=== PATIENT | male | born 1950 | race Caucasian/White ===

== ENCOUNTER 2018-04-08 16:58 | Inpatient (IN) | payer MEDICAID ==
[~2018-04-08] VITALS: Ht 175.3 cm; Wt 62.1 kg
--- NOTE | 2018-04-08 17:14 | NUR ---
BIBRA 860 C/O LLQ ABDOMINAL PAIN SINCE LAST NIGHT. PAIN LEVEL 8/10, FEELS LIKE "SOMEONE IS PUNCHING ME". HAD THIS EXPERIENCE ONCE BEFORE. HAS NOT TAKEN ANYTHING FOR PAIN. PT IS AOX4, AMB, VSS, RR EVEN AND UNLABORED. SKIN INTACT. DENIES DIZZINESS, WEAKNESS, N/V. READY FOR EVAL.
--- NOTE | 2018-04-08 17:16 | NUR ---
DR WETZEL AT BEDSIDE
[2018-04-08] MEDS ORDERED: KETOROLAC TROMETHAMINE INJ 30 MG/ML VIAL IV ONE (17:30)
[2018-04-08] MEDS ORDERED: KETOROLAC TROMETHAMINE INJ 30 MG/ML VIAL ONE (17:33)
--- NOTE | 2018-04-08 18:28 | NUR ---
PHLEB AT BEDSIDE, BLOOD SENT TO LAB
[2018-04-08 18:38] LABS: BASOPHILS % (AUTO) 0.7 % (0.0-2.0); EOSINOPHILS % (AUTO) 1.3 % (0.0-6.0); HEMATOCRIT 35 % (39-51); HEMOGLOBIN 11.5 g/dL (13.5-17.5); LYMPHOCYTES % (AUTO) 19.3 % (20.0-44.0); MEAN CORPUSCULAR HGB CONC 33 g/dl (31.0-36.0); MEAN CORPUSCULAR VOLUME 95 fL (80-96); MONOCYTES # (AUTO) 0.6 /CMM (0.1-1.30); MONOCYTES % (AUTO) 11.1 % (2.0-12.0); NEUTROPHILS # (AUTO) 3.6 /CMM (1.8-8.9); NEUTROPHILS % (AUTO) 67.6 % (43.0-81.0); PLATELET COUNT (AUTO) 303 /CMM (150-450); RED BLOOD CELL COUNT(AUTO) 3.69 MIL/uL (4.5-6.0); WHITE BLOOD COUNT (AUTO) 5.4 K/uL (4.3-11.0)
[2018-04-08 18:54] LABS: ALBUMIN 2.9 g/dL (3.4-5.0); BILIRUBIN,DIRECT 0.1 mg/dL (0.0-0.2); BILIRUBIN,TOTAL 0.3 mg/dL (0.2-1.0); CALCIUM, SERUM 8.6 mg/dL (8.5-10.1); CREATININE 0.6 mg/dL (0.6-1.3); POTASSIUM 3.5 mmol/L (3.5-5.1); TOTAL PROTEIN, SERUM 7.4 g/dL (6.4-8.2)
--- NOTE | 2018-04-08 19:54 | NUR ---
PT IS GOING TO [facility], DR MAYNARD IS ADMITTING. DX: PANCREATITIS
[2018-04-08] MEDS ORDERED: HYDROMORPHONE 1 MG/1 ML DISP.SYRIN IV ONE (20:00)
[2018-04-08] MEDS ORDERED: ONDANSETRON HCL/PF 4 MG/2 ML VIAL IVP PRN (20:00)
[2018-04-08] MEDS ORDERED: HYDROMORPHONE INJ 2 MG/ML DISP.SYRIN ONE (20:05)
--- NOTE | 2018-04-08 20:26 | NUR ---
REPORT GIVEN TO JOHN AVILA FOR 202 M/S
[2018-04-08 21:00] VITALS: BP 133/75
--- NOTE | 2018-04-08 21:00 | NUR ---
RECEIVED PATIENT FROM ER FOR DX ACUTE PANCREATITIS. AO X 3, ABLE TO MAKE NEEDS KNOWN. NO ACUTE DISTRESS NOTED. 4/10 LLQ ABDOMINAL PAIN. IV SITE PATENT, INTACT; FLUSHED. SKIN ASSESSMENT DONE. PATIENT REFUSED TO HAVE PICTURES OF BILATERAL HAND SCABS TAKEN. PATIENT IS INFORMED THAT HE HAS TO BE NPO. PATIENT INSISTED THAT HE WANTS TO EAT. EDUCATION GIVEN. PATIENT STATED THAT HE WILL LEAVE AMA IF HE DOES NOT GET ANY FOOD. PATIENT IS ENCOURAGED TO STAY. SAFETY REMINDERS GIVEN. ORIENTATION TO ROOM AND UNIT GIVEN TO PATIENT. ON LOW BED WITH BILATERAL UPPER SIDE RAILS UP. CALL DELACRUZ WITHIN EASY REACH. WILL CONTINUE TO MONITOR.
[2018-04-08 22:00] VITALS: BP 133/75
[2018-04-08] MEDS: IV NS 0.9% 1,000 ML IV PRN (22:05)
--- NOTE | 2018-04-08 23:45 | NUR ---
DR. MAYNARD SAW PATIENT AT BEDSIDE. DR. MAYNARD TOLD PATIENT THAT NO EATING/NO DRINKING IS THE PLAN OF CARE FOR PANCREATITIS. PATIENT STATED THAT HE WANTS TO EAT; BUT DECIDED TO STAY IN HIS ROOM FOR THE TIME BEING.
[2018-04-09] MEDS ORDERED: HYDROMORPHONE INJ 2 MG/ML DISP.SYRIN ONE (00:57)
[2018-04-09] MEDS: HYDROMORPHONE INJ 2 MG/ML DISP.SYRIN IV PRN ×6 (01:06→21:56)
--- NOTE | 2018-04-09 06:17 | NUR ---
PATIENT ASLEEP, EASILY AROUSABLE. RESPIRATIONS EVEN. NO SIGNS OF PAIN NOTED. NEEDS ATTENDED. SAFETY PRECAUTIONS AND COMFORT MEASURES IN PLACE. WILL GIVE REPORT TO DAY SHIFT FOR CONTINUITY OF CARE.
[2018-04-09 07:09] LABS: BASOPHILS % (AUTO) 0.6 % (0.0-2.0); EOSINOPHILS % (AUTO) 1.5 % (0.0-6.0); HEMATOCRIT 31 % (39-51); HEMOGLOBIN 10.3 g/dL (13.5-17.5); LYMPHOCYTES # (AUTO) 1.4 /CMM (0.8-4.8); LYMPHOCYTES % (AUTO) 25.7 % (20.0-44.0); MEAN CORPUSCULAR HGB CONC 33 g/dl (31.0-36.0); MEAN CORPUSCULAR VOLUME 93 fL (80-96); MONOCYTES # (AUTO) 0.9 /CMM (0.1-1.30); MONOCYTES % (AUTO) 16.9 % (2.0-12.0); NEUTROPHILS % (AUTO) 55.3 % (43.0-81.0); PLATELET COUNT (AUTO) 292 /CMM (150-450); RED BLOOD CELL COUNT(AUTO) 3.32 MIL/uL (4.5-6.0); WHITE BLOOD COUNT (AUTO) 5.4 K/uL (4.3-11.0)
[2018-04-09 07:25] LABS: CALCIUM, SERUM 8.2 mg/dL (8.5-10.1); CREATININE 0.7 mg/dL (0.6-1.3); MAGNESIUM 1.7 mg/dL (1.8-2.4); PHOSPHORUS 3.6 mg/dL (2.5-4.9); POTASSIUM 3.4 mmol/L (3.5-5.1)
[2018-04-09] MEDS: IV NS 0.9% 1,000 ML IV PRN (07:25)
--- NOTE | 2018-04-09 07:30 | NUR ---
MS/RN OPENING NOTE THE PATIENT ALERT AND ORIENTED X4. DENIES SOB. RESPIRATION REGULAR AND UNLABORED. DENIES PAIN. THE PATIENT IN NO APPARENT DISTRESS. NPO SINCE MIDNIGHT. LEFT HAND G 20 PATENT AND NORMAL SALINE INFUSING AT 150 ML/HR AND NO S/S INFILTRATION NOTED. BED LOW AND LOCKED. SIDE RAILS UP X3. CALL LIGHT WITHIN REACH. WILL CONTINUE TO MONITOR.
[2018-04-09 07:35] LABS: THYROID STIMULATING HORMONE 2.375 uIU/mL (0.358-3.74)
[2018-04-09 08:13] VITALS: BP 97/50
[2018-04-09] MEDS: PANTOPRAZOLE 40 MG VIAL IV SCH (09:02)
--- NOTE | 2018-04-09 09:04 | NUR ---
MS/RN PATIENT COMPLAINS OF LEFT LOWER ABDOMEN PAIN 8. DILAUDID 1 MG IV PUSH IS GIVEN. WILL CONTINUE TO MONITOR.
--- NOTE | 2018-04-09 09:33 | NUR ---
MS/RN NOTE PATIENT VERBALIZED RELIEF FROM ABDOMINAPIN PAIN AND RATED PAIN 0/10.
[2018-04-09] MEDS ORDERED: IOHEXOL-300 100 ML VIAL IV ONE (09:48)
[2018-04-09] MEDS ORDERED: IV NS 0.9% 250 ML IV ONE (09:48)
[2018-04-09] MEDS ORDERED: CT SWABBABLE VALVE TRANS SET 1 EA INFUS.SET MC ONE (09:48)
--- NOTE | 2018-04-09 10:58 | NUR ---
Social service consult requested by Sr. Richardson for homelessness. Pt. is a 67 year old male who was admitted to [facility] for Pancreatitis. SW met with pt. bedside. Pt. is alert and oriented x 4. Pt. is defensive, angry and unfriendly. Pt. states he lives in [place] [facility] [place] and is visiting his family who reside in the [place]. Pt. refuses to disclose any other information or answer questions that are asked. Pt. did confirm he will be going to live with his family who he came to visit once medically cleared. No other social service needs are required at this time. BAKARI updated pt's RN Jennifer regarding pt's discharge plan. RN Jennifer informed BAKARI that pt. is thinking of going AMA because he is NPO but wants to eat some food. SW is available, if needed.
[2018-04-09] MEDS: Magnesium 1GM/D5W 100ML PREMIX 100 ML IV SCH ×2 (13:31→14:36)
[2018-04-09] MEDS: POTASSIUM CL. PREMIX PERIPHER. 50 ML IV SCH ×2 (14:00→16:32)
[2018-04-09 16:01] VITALS: BP 132/72
--- NOTE | 2018-04-09 17:50 | NUR ---
MS/RN NOTE POTASSIUM CHLORIDE 10MEQ IV IS NOT ADMINISTERED DUE TO PATIENT REFUSING TO HAVE IV MEDICATION. THE PATIENT WAS EXPLAINED RISKS AND BENEFITS BUT THE PATIENT STILL REFUSED. DR BYRD IS MADE AWARE AND RECEIVED NEW ORDER FOR POTASSIUM CHLORIDE 10 MEQ PO X1. NOTED AND CARRIED OUT.
[2018-04-09 17:55] LABS: FREE PSA 0.25 ng/mL (0.00-45)
[2018-04-09] MEDS ORDERED: POTASSIUM CHLORIDE 10 MEQ TABLET.SA PO ONE ×2 (18:00→18:30)
--- NOTE | 2018-04-09 18:16 | NUR ---
MS/RN NOTE THE PATIENT ALERT AND ORIENTED X4. DENIES SOB. IN ROOM AIR SATURATION IS AT 97%. DENIES PAIN AT THIS TIME. LEFT HAND 20 PATENT AND SALINE LOCKED. PATIENT IS REMINDED THAT HE WILL BE NPO AFTER MIDNIGHT. PATIENT TOLERATED CLEAR LIQUID DIET WELL. NO NAUSEA AND NO VOMITING. ABDOMEN SOFT AND NON-DISTENDED. BED LOW AND LOCKED. SIDE RAILS UP X3. CALL LIGHT WITHIN REACH. WILL ENDORSE TO NIGHT.
[2018-04-09 19:00] VITALS: BP 125/75
--- NOTE | 2018-04-09 19:15 | NUR ---
MS RN OPENING NOTES: RECEIVED PT ON ROOM AIR AND IS TOLERATING WELL. PT IS A/OX4. PT IS PACING UP AND DOWN THE HALLWAYS. PT APPEARS TO BE UPSET AT THIS TIME. RU IV INFILTRATED. WILL HAVE TO START A NEW IV SOON. NO S/S OF DISTRESS AT THIS TIME. BED KEPT IN LOW, LOCKED POSITION, AND SIDE RAILS X 2UP. WILL CONTINUE TO MONITOR PT.
--- NOTE | 2018-04-09 19:41 | NUR ---
MS RN NOTES: STAFFING ASSISTANT JEFFY MORTENSEN AT BEDSIDE. NO LONGER NPO POST MIDNIGHT. OK TO BE ON CLEAR LIQUIDS DIET EVEN AFTER MIDNIGHT. CASE MANAGEMENT ORDERED TO BE TRANSFERRED TO ANOTHER FACILITY.
[2018-04-09] MEDS: METRONIDAZOLE 500MG/ NS 100ML 500 MG in PREMIX 1 EA IV SCH (20:12)
--- NOTE | 2018-04-09 23:18 | NUR ---
MS RN NOTES: PAGED HISTORY FACULTY MEMBER. AWAITING FOR CALL BACK. PT SAYING HE WANTS TO SPEAK TO A DOCTOR. ALSO PT COMPLAINING OF THAT PAIN MEDICATION IS NOT LASTING FOR LONG.
[2018-04-10 00:55] VITALS: BP 123/76
[2018-04-10] MEDS: HYDROMORPHONE INJ 2 MG/ML DISP.SYRIN IV PRN ×6 (00:58→21:58)
--- NOTE | 2018-04-10 01:00 | NUR ---
MS RN NOTES: PT COMPLAINING OF 10/10 L LOWER/UPPER ABDOMEN ACHY PAIN. PT WAS ADMINISTERED DILAUDID 1MG IV. WILL CONTINUE TO MONITOR.
--- NOTE | 2018-04-10 01:09 | NUR ---
MS RN NOTES: DR. CAESAR Castro. ON FLOOR. INFORMED HIM ABOUT PT'S CONCERN ABOUT PAIN MEDICATION NOT TAKING MUCH EFFECT. DR. CAESAR Castro. AWARE OF HIS HISTORY. NO NEW ORDERS AT THIS TIME.
[2018-04-10 02:00] VITALS: BP 140/84
[2018-04-10] MEDS: LORAZEPAM INJ 2 MG/ML VIAL IV PRN ×2 (02:04→23:44)
--- NOTE | 2018-04-10 02:12 | NUR ---
MS RN NOTES: INFORMED PT ABOUT MD NOT ORDERING ANY MORE PAIN MEDS. PT VERY ANXIOUS. PT ADMINISTERED ATIVAN 1MG VIA IV. WILL CONTINUE TO MONITOR.
[2018-04-10] MEDS: METRONIDAZOLE 500MG/ NS 100ML 500 MG in PREMIX 1 EA IV SCH ×3 (04:17→20:21)
[2018-04-10 06:02] VITALS: BP 150/88
[2018-04-10] MEDS ORDERED: HYDROMORPHONE 1 MG/1 ML DISP.SYRIN ONE (06:07)
[2018-04-10] MEDS: IV NS 0.9% 1,000 ML IV PRN (06:16)
--- NOTE | 2018-04-10 06:22 | NUR ---
MS RN NOTES: DILAUDID STOCK OUT ON FLOOR. CHARGE NURSE OVERRODE FROM 3W EXACTLY DILAUDID 1MG. NO WASTE NEEDED. HAD TO MANUALLY ADMINISTER. PT COMPLAINING OF 10/10 L UPPER/LOWER AB PAIN. PT WAS ADMINISTERED DILAUDID 1MG IV. WILL CONTINUE TO MONITOR.
[2018-04-10 06:27] LABS: APPEARANCE,URINE CLEAR (CLEAR); BILIRUBIN,URINE NEGATIVE (NEGATIVE); BLOOD, URINE 2+ Ery/uL (NEGATIVE); COLOR,URINE YELLOW (YELLOW); KETONES,URINE NEGATIVE (NEGATIVE); LEUKOCYTE ESTERASE ,URINE NEGATIVE (NEGATIVE); NITRITE, URINE NEGATIVE (NEGATIVE); PH,URINE 5.5 (5.0-8.0); PROTEIN,URINE NEGATIVE (NEGATIVE); UGLUCOSE NEGATIVE (NEGATIVE); UROBILINOGEN,URINE 0.2 EU/dL (0.2)
[2018-04-10 06:34] LABS: BACTERIA,URINE Rare /HPF (None Seen); SQUAMOUS EPITHELIAL CELL,UR Rare /HPF (None Seen); WBC,URINE 0-2 /HPF (0-3)
--- NOTE | 2018-04-10 07:14 | NUR ---
MS RN CLOSING NOTES: ALL NEEDS WERE ATTENDED AND ANTICIPATED FOR. PT ASLEEP AT THIS TIME AND RESTING COMFORTABLY. PT ON ROOM AIR AND TOLERATING WELL. PT UPSET THAT PAIN MEDICATION IS NOT RELIEVING THE PAIN COMPLETELY. PT UPSET THAT NO MDS HAVE SPOKEN TO HIM. EXPLAINED TO HIM THAT I SPOKE WITH DR. CAESAR Burns AND HE DID NOT ORDER ANYTHING NEW. IV REMAINS INTACT AND IS BEING INFUSED WITH NS AT THIS TIME. BED KEPT IN LOW, LOCKED POSITION, AND SIDE RAILS X 2UP. ENDORSED TO AM NURSE FOR EARNEST.
--- NOTE | 2018-04-10 07:20 | NUR ---
MS/RN OPENING NOTE THE PATIENT IS ALERT AND ORIENTED X4. IN ROOM AIR AND DENIES SOB. RESPIRATION REGULAR AND UNLABORED. DENIES PAIN. THE PATIENT IN NO APPARENT DISTRESS. RIGHT HAND G 22 PATENT AND NORMAL SALINE INFUSING AT 150ML/HR AND NO S/S INFILTRATION NOTED. BED LOW AND LOCKED. SIDE RAILS UP X3. CALL LIGHT WITHIN REACH. WILL CONTINUE TO MONITOR.
[2018-04-10 08:00] VITALS: BP 121/73
[2018-04-10] MEDS: DOCUSATE SODIUM 100 MG CAPSULE PO SCH ×2 (08:01→16:30)
[2018-04-10] MEDS: PANTOPRAZOLE 40 MG VIAL IV SCH (08:01)
[2018-04-10 09:57] LABS: BASOPHILS % (AUTO) 0.5 % (0.0-2.0); EOSINOPHILS % (AUTO) 1.7 % (0.0-6.0); HEMATOCRIT 36 % (39-51); HEMOGLOBIN 11.8 g/dL (13.5-17.5); LYMPHOCYTES % (AUTO) 19.6 % (20.0-44.0); MEAN CORPUSCULAR HGB CONC 33 g/dl (31.0-36.0); MEAN CORPUSCULAR VOLUME 95 fL (80-96); MONOCYTES % (AUTO) 14.1 % (2.0-12.0); NEUTROPHILS % (AUTO) 64.1 % (43.0-81.0); PLATELET COUNT (AUTO) 335 /CMM (150-450); RED BLOOD CELL COUNT(AUTO) 3.81 MIL/uL (4.5-6.0); WHITE BLOOD COUNT (AUTO) 6.4 K/uL (4.3-11.0)
[2018-04-10 09:58] LABS: LYMPHOCYTES # (AUTO) 1.3 /CMM (0.8-4.8); MONOCYTES # (AUTO) 0.9 /CMM (0.1-1.30); NEUTROPHILS # (AUTO) 4.1 /CMM (1.8-8.9)
--- NOTE | 2018-04-10 10:12 | NUR ---
MS/RN NOTE THE PATIENT WAS SEEN BY DR RAMSAY AND RECEIVED NEW ORDER TO DISCONTINUE CLEAR LIQUID DIET AND START FULL LIQUID DIET STARTING 04/10/18 LUNCH TIME AND ADVANCE TOLERATED. NOTED AND CARRIED OUT.
[2018-04-10 10:14] LABS: CALCIUM, SERUM 8.8 mg/dL (8.5-10.1); CREATININE 0.7 mg/dL (0.6-1.3); MAGNESIUM 1.8 mg/dL (1.8-2.4); PHOSPHORUS 2.9 mg/dL (2.5-4.9); POTASSIUM 3.3 mmol/L (3.5-5.1)
[2018-04-10] MEDS ORDERED: POTASSIUM CHLORIDE 20 MEQ TAB.PRT.SR PO ONE (12:00)
[2018-04-10 13:20] LABS: AFP, TUMOR MARKER 51.2 ng/mL (0.0-8.3); CARBOHYDRATE AG 19-9 63 U/mL (0-35)
[2018-04-10 16:00] VITALS: BP 124/72
--- NOTE | 2018-04-10 16:00 | NUR ---
MS/RN NOTE THE PATIENT IS NONCOMPLIANT WITH IV FLUID HYDRATION AND REQUESTS THE IV TO BE DISCONNECTED.
--- NOTE | 2018-04-10 18:09 | NUR ---
MS/RN NOTE RECEIVED ORDER FROM DR FERNANDEZ TO DISCONTINUE DILAUDID 1 MG Q3HR PRN AND START NEW ORDER OF DILAUDID 0.5MG Q3HR PRN. READ BACK, VERIFIED. NOTED AND CARRIED OUT.
--- NOTE | 2018-04-10 18:25 | NUR ---
MS/RN CLOSING NOTE THE PATIENT ALERT AND ORIENTED X4. IN ROOM AIR AND SATURATION IS IN 97%. DENIES SOB. DENIES PAIN. RIGHT HAND G 22 PATENT AND SALINE LOCKED. BED LOW AND LOCKED. SIDE RAILS UP X2. CALL LIGHT WITHIN REACH. WILL ENDORSE TO PERIODONTAL ASSISTANT.
--- NOTE | 2018-04-10 19:20 | NUR ---
RN OPENING NOTES PT AWAKE AND RESTING IN BED. PT COMPLAINS OF ABD PAIN. WILL FOLLOW UP WITH MD ORDERS FOR PAIN MANAGEMENT. PT HAS A RIGHT HAND #22 IV INTACT, PT CURRENTLY DISCONNECTED FROM IV. WILL ENCOURAGE PT TO DRINK WATER OR ALLOW TO ATTACH TO IV FLUIDS. SAFETY PRECAUTIONS IN PLACE, BED IN LOWEST LOCKED POSITION, X2 SIDE RAILS UP AND CALL LIGHT WITHIN REACH. WILL CONTINUE TO MONITOR.
[2018-04-10 20:00] VITALS: BP 126/77
[2018-04-11] MEDS: HYDROMORPHONE INJ 2 MG/ML DISP.SYRIN IV PRN ×2 (01:52→08:31)
[2018-04-11] MEDS: METRONIDAZOLE 500MG/ NS 100ML 500 MG in PREMIX 1 EA IV SCH ×2 (04:33→12:09)
[2018-04-11] MEDS: IV NS 0.9% 1,000 ML IV PRN (04:37)
--- NOTE | 2018-04-11 05:55 | NUR ---
RN CLOSING NOTES SLEEPING IN BED. NO COMPLAINTS OF PAIN, SOB OR DISTRESS AT THIS TIME. PT PAIN MANAGED WITH DILAUDID. PT GIVEN ATIVAN TO HELP "CALM DOWN". PT HAS A RIGHT HAND #22 IV INTACT RUNNING NS @150 ML/HR. SAFETY PRECAUTIONS IN PLACE, BED IN LOWEST LOCKED POSITION, X2 SIDE RAILS UP AND CALL LIGHT WITHIN REACH. ALL PATIENT NEEDS MET OVERNIGHT. WILL ENDORSE TO DAY SHIFT NURSE FOR CONTINUITY OF CARE.
--- NOTE | 2018-04-11 07:41 | NUR ---
MS RN OPENING NOTES RECEIVED PT LAYING IN BED, RESTING COMFORTABLE. PT IS EASILY AROUSABLE. PT IS A/O 4, AFEBRILE. RESPIRATIONS ARE EVEN AND UNLABORED, NOT IN ANY ACUTE DISTRESS NOTED. DENIES ANY CHEST PAIN, SOB, N/V. IV SITE TO RIGHT HAND INTACT, NO INFILTRATION NOTED. DRESSING KEPT CLEAN AND DRY. SAFETY MEASURES ARE IN PLACE. INSTRUCTED PT TO USE CALL LIGHT WHEN ASSISTANCE IS NEEDED, CALL LIGHT IS LEFT WITHIN REACH. WILL CONTINUE TO MONITOR THROUGHOUT SHIFT FOR CONTINUITY OF CARE.
[2018-04-11 08:00] VITALS: BP 147/89
--- NOTE | 2018-04-11 08:00 | NUR ---
MS RN NOTES-- PT REFUSED LAB DRAW. PER MOLD SHIFTER, PT REFUSED EARLIER THIS AM WELL. EXPLAINED THE IMPORTANCE OF BLOOD DRAW, PT STILL NOTED WITH REFUSAL.
[2018-04-11] MEDS: PANTOPRAZOLE 40 MG VIAL IV SCH (08:31)
[2018-04-11] MEDS: DOCUSATE SODIUM 100 MG CAPSULE PO SCH (08:31)
--- NOTE | 2018-04-11 11:30 | NUR ---
MS RN NOTES-- PT SEEN AND EXAMINED BY DR. FERNANDEZ WITH DISCHARGE TO GO HOME.
[2018-04-11 16:00] VITALS: BP 128/73
--- NOTE | 2018-04-11 16:25 | NUR ---
MS CORPORATE SAFETY DIRECTOR NOTES PT DISCHARGE TO HOME IN STABLE CONDITION. PT IS A/O X4, AFEBRILE. RESPIRATIONS ARE EVEN AND UNLABORED, NOT IN ANY ACUTE DISTRESS NOTED. PT DENIES ANY CHEST PAIN AT THIS TIME, NO C/O SOB, N/V. PUPILS ARE REACTIVE TO LIGHT, BILATERAL HAND CAN STRIPER ARE STRONG AND EQUAL. PT C/O 4/10 PAIN TO LEFT ABDOMEN AND IS "TOLERABLE." DENIES ANY BLADDER DISCOMFORT. EXPLAINED DISCHARGE PAPERWORK TO PT WITH VERBAL AND WRITTEN UNDERSTANDING. IV SITE TO LFA REMOVED, APPLIED PRESSURE AND TOLERATED WELL. ID BAND REMOVED. PT ABLE TO DRESS SELF AND ALL BELONGINGS TAKEN WITH PT INCLUDING ALL MEDICATIONS. PT ACCOMPANIED DOWNSTAIRS WITH 1 STAFF SUPERVISION AND P/U BY TAXI. PT LEFT IN STABLE CONDITION.
== END 2018-04-11 16:25 | disposition home or self-care (01) | DRG 439 ==
LOC: ER 17:03 → MEDSG2 19:49
PROVIDERS: ATTEND Family Medicine
DX: K85.20 Alcohol induced acute pancreatitis without necrosis or infection (principal); K86.2 Cyst of pancreas; R18.8 Other ascites; F10.188 Alcohol abuse with other alcohol-induced disorder; C22.9 Malignant neoplasm of liver, not specified as primary or secondary; K59.00 Constipation, unspecified; E87.6 Hypokalemia; K82.4 Cholesterolosis of gallbladder; Z76.5 Malingerer [conscious simulation]; N20.0 Calculus of kidney; K57.30 Diverticulosis of large intestine without perforation or abscess without bleeding; D63.8 Anemia in other chronic diseases classified elsewhere; Y90.1 Blood alcohol level of 20-39 mg/100 ml; K86.1 Other chronic pancreatitis; Z85.828 Personal history of other malignant neoplasm of skin; R93.5 Abnormal findings on diagnostic imaging of other abdominal regions, including retroperitoneum
CPT/HCPCS: 36415; 71045-TC; 74178; 76705-TC; 80048-TC; 80061-TC; 80074; 80076-TC; 80305; 81000-TC; 82105; 82150-TC; 82378; 82728-TC; 83540-TC; 83690-TC; 83735-TC; 84100-TC; 84153-TC; 84154-TC; 84443-TC; 85025-TC; 86301; 87081-TC; A4216; C9113; G0378; G0480; J1170; J1885; J2060; J3475; J3480; J3490; J7030; J7050; Q9967